=== PATIENT | female | born 1975 | race African-American/Black ===

== ENCOUNTER 2016-10-08 13:56 | Emergency (ER) | payer OTHER ==
--- NOTE | ~2016-10-08 | US98 ---
[facility] A Service of [facility] RADIOLOGY TEXT RESULTS PATIENT: ET LOPEZ LOCATION: [facility] : 77 UNIT #: [id number] AGE: [address]: Valentino Chi MD SEX: F ORDER DR: [id number] [facility] [address] [place], [place] [address] [id number] E MR#: [id number] Acc #: [id number] NAME: TE LOPEZ : 1975 SEX: F STUDY DATE/TIME: 10/08/2016 17:50 UNIT: [facility]IN[facility] ROOM: STUDY DESCRIPTION: US Pelvic Non-OB Complete Attending Physician: Joel Chi M.D. Ordering Physician: Ed Mauricio Rosa M.D. Primary Care Physician: Quentin Mistry M.D. MEDICAL IMAGING REPORT This report is preliminary unless electronic signature is present EXAM Pelvic ultrasound. HISTORY Pelvic pain for 2 days. Prior hysterectomy 1 month ago. FINDINGS Ultrasound examination of the pelvis was performed with transabdominal and endovaginal technique. The uterus is absent. The right ovary is unremarkable. No right ovarian mass or enlargement. Normal blood flow to the right ovary on color Doppler. The left ovary was not visualized due to overlying bowel gas. No free fluid is identified. IMPRESSION 1. The uterus is absent and the left ovary was not visualized due to bowel gas in the left adnexa. 2. The right ovary is normal. Blood flow is noted in the right ovary on Doppler. 3. No free fluid. Dictated by... Cristopher Escalante M.D. THIS IS AN ELECTRONICALLY VERIFIED REPORT Cristopher Escalante M.D. at 10/08/2016 10:53 PM DOMINIC/wendy TD: 10/08/2016 22:06 JOB #: [id number] MEDICAL IMAGING REPORT [facility] A Service of [facility] RADIOLOGY TEXT RESULTS PATIENT: TE LOPEZ LOCATION: [facility] #: [id number] : 77 UNIT #: [id number] AGE: [address]: Valentino Chi MD SEX: F ORDER DR: Page 1 of 1 COPY
--- NOTE | ~2016-10-08 | CT2 ---
[facility] A Service of [facility] RADIOLOGY TEXT RESULTS PATIENT: TE LOPEZ LOCATION: [facility] : 77 UNIT #: [id number] AGE: [address]: Valentino Chi MD SEX: F ORDER DR: [id number] [facility] [address] [place], [place] [address] [id number] E MR#: [id number] Acc #: [id number] NAME: TE LOPEZ : 1975 SEX: F STUDY DATE/TIME: 10/08/2016 17:34 UNIT: [facility] ROOM: STUDY DESCRIPTION: CT Abd and Pelv W Cont Attending Physician: Joel Chi M.D. Referring Physician: Vineet Mcclellan M.D. Ordering Physician: Ashutosh Rosa M.D. Primary Care Physician: Quentin Mistry M.D. MEDICAL IMAGING REPORT This report is preliminary unless electronic signature is present EXAM CT abdomen and pelvis with IV contrast. HISTORY Pelvic pain for 2 days. Hysterectomy, 08/12/16. TECHNIQUE This CT exam was performed with one or more of the following radiation dose reduction techniques: automatic exposure control, adjustment of mA and/or kV according to patient size, and iterative reconstruction. FINDINGS CT abdomen and pelvis was performed with oral and IV contrast. CT ABDOMEN. Incidental focal fatty infiltration of the left hepatic lobe adjacent to the falciform ligament. The remainder of the liver is unremarkable. The gallbladder, spleen, pancreas, kidneys, and adrenal glands are normal. No bowel dilatation. No ascites or adenopathy. CT PELVIS. Postop changes of recent hysterectomy with mild fat stranding throughout the central pelvis, but no abnormal fluid collection or abscess. Incidental small bilateral ovarian physiologic cysts. Mild subcutaneous stranding over infraumbilical midline incision. IMPRESSION 1. Postop changes of recent hysterectomy with mild stranding in the central pelvis, but no abnormal fluid collections or abscess. There is also a small amount of subcutaneous stranding along the infraumbilical midline incision, but no subcutaneous fluid collection. [facility] A Service of [facility] RADIOLOGY TEXT RESULTS PATIENT: TE LOPEZ LOCATION: [facility] #: [id number] : 77 UNIT #: [id number] AGE: [address]: Valentino Chi MD SEX: F ORDER DR: 2. No acute finding in the remainder of the abdomen or pelvis. 3. Normal appendix. 4. Incidental small bilateral ovarian physiologic cysts. Dictated by... Cristopher Escalante M.D. THIS IS AN ELECTRONICALLY VERIFIED REPORT Cristopher Escalante M.D. at 10/08/2016 10:53 PM DOMINIC/wendy TD: 10/08/2016 22:12 JOB #: [id number] MEDICAL IMAGING REPORT Page 1 of 1 COPY
[~2016-10-08 13:56] MED LIST: BENTYL20 M1 PO; BENTYL20 MG PO; CIPRO PO; FLAGYL PO; FLEXERIL10 MG PO; IBUPROFEN800 MG PO; LEVAQUIN750 MG PO; LORTAB 5/500 TA1 TA1 PO; METFORMIN HCL500 M1 PO; PHENERGAN12.5 MG PO; PHENERGAN25 MG PO; TAMIFLU75 M1 PO; VOLTAREN75 MG PO; ZOFRANODT PO
[2016-10-08 15:56] LABS: BASOPHIL% 0.4 % (0-2.5); EOSINOPHIL# 0.1 X10e3 (0-0.7); EOSINOPHIL% 0.9 % (0.0-7.0); HEMATOCRIT 36.2 % (35.0-45.0); HEMOGLOBIN 11.2 gm/dL (12.0-16.0); LYMPHOCYTE# 1.4 X10e3 (1.0-3.5); LYMPHOCYTE% 18.4 % (17.0-45.0); MEAN CELL VOLUME 88.1 FL (83-96); MEAN CORPUSCULAR HEMOGLOBIN 27.3 PG (28-34); MEAN PLATELET VOLUME 8.5 FL (6.5-11.5); MONOCYTE# 0.6 X10e3 (0-1.0); MONOCYTE% 7.6 % (3.0-12.0); NEUTROPHIL# 5.4 X10e3 (1.5-7.1); NEUTROPHIL% 72.7 % (40-75); PLATELET COUNT 241 X10e3 (140-420); RED BLOOD COUNT 4.11 X10e (3.90-5.30); RED CELL DISTRIBUTION WIDTH 15.5 % (11.0-15.5); WHITE BLOOD COUNT 7.4 X10e3 (4.0-10.5)
[2016-10-08 15:58] LABS: ALBUMIN SERUM 4.9 g/dL (3.5-5.0); ALKALINE PHOSPHATASE 47 U/L (32-92); ALT (SGPT) 16 U/L (10-40); AMYLASE 27 U/L (0-46); AST (SGOT) 21 U/L (10-42); BILIRUBIN,TOTAL 0.6 mg/dL (0.2-2.0); BLOOD UREA NITROGEN 11 mg/dL (9-23); BUN/CREATININE RATIO 13.75; CALCIUM SERUM 9.1 mg/dL (8.4-10.2); CARBON DIOXIDE 23 mmol/L (22-31); CHLORIDE 100 mmol/L (100-111); CREATININE SERUM 0.8 mg/dL (0.6-1.4); DIFF IND NO; GLUCOSE FASTING 111 mg/dL (70-110); LIPASE 26 U/L (22-51); POTASSIUM 3.7 mmol/L (3.5-5.1); PROTEIN TOTAL SERUM 8.9 g/dL (6.0-8.3); SODIUM 131 mmol/L (135-145)
[2016-10-08 16:01] LABS: BILIRUBIN, DIRECT <0.1 mg/dL (0.0-0.2); BILIRUBIN,INDIRECT 0.5 mg/dL (0.0-0.9)
[2016-10-08 16:25] LABS: URINE SOURCE CLEAN CATCH
[2016-10-08 16:31] LABS: URINE APPEARANCE CLEAR; URINE BILIRUBIN NEG (NEG); URINE BLOOD NEG (NEG); URINE COLOR YELLOW; URINE GLUCOSE NEG (NEG); URINE KETONE NEG (NEG); URINE LEUKOCYTE ESTERASE TRACE (NEG); URINE NITRATE NEG (NEG); URINE PH 7.5 (5-8); URINE PROTEIN NEG (NEG); URINE SPECIFIC GRAVITY 1.022 (1.003-1.035); URINE UROBILINOGEN 0.2 MG/DL (NEG)
[2016-10-08 16:32] LABS: URBCS1 AUWI 0-2 /[HPF] (0-2); URINE BACTERIA AUWI NEG (NEGATIVE); URINE SQUAMOUS EPITHELIAL CELL OCC /[HPF]
[2016-10-08 16:34] LABS: CULTURE INDICATED? NO
== END 2016-10-08 19:00 | disposition home or self-care (01) ==
LOC: CED 13:56
PROVIDERS: Emergency Medicine
DX: R10.9 Unspecified abdominal pain (principal); Z90.710 Acquired absence of both cervix and uterus; Z98.51 Tubal ligation status; Z88.5 Allergy status to narcotic agent; Z88.8 Allergy status to other drugs, medicaments and biological substances
CPT/HCPCS: 36415; 74177; 76830; 76856; 80048; 80076; 81003; 82150; 83690; 85025; 96374; 96375; 99284; J2270; J2405; Q9967